=== PATIENT | female | born 1935 | race African-American/Black ===

== ENCOUNTER 2021-07-16 13:24 | Emergency (ER) | payer MEDICARE, OTHER ==
[~2021-07-16] VITALS: Ht 170.2 cm; Wt 70.0 kg
[2021-07-16 16:00] VITALS: BP 133/72
== END 2021-07-16 16:01 | disposition home or self-care (01) ==
LOC: ER 13:24
DX: M25.552 Pain in left hip (principal); E11.9 Type 2 diabetes mellitus without complications; I10 Essential (primary) hypertension; W01.0XXA Fall on same level from slipping, tripping and stumbling without subsequent striking against object, initial encounter; Y93.89 Activity, other specified; Y92.9 Unspecified place or not applicable; Z96.652 Presence of left artificial knee joint
CPT/HCPCS: 73502; 73560; 73610; 99282; 99283